=== PATIENT | female | born 1990 | race Caucasian/White ===

== ENCOUNTER 2017-10-31 10:07 | Day surgery (SDC) | payer BC, OTHER ==
[2017-10-30 11:06] VITALS: BMI 34.0
--- NOTE | 2017-10-30 11:56 | HISTORY & PHYSICAL EXAMINATION ---
DATE OF ADMISSION: 10/31/2017 PREOPERATIVE HISTORY AND PHYSICAL HISTORY OF PRESENT ILLNESS: The patient presents as a very pleasant 27-year-old white female with complaints of ongoing pain attributable to her right knee. She has patellofemoral chondrosis with patellofemoral syndrome. She has failed attempts at conservative management including physical therapy, anti-inflammatories, relative rest, activity modification as well as corticosteroid injections and physical therapy. PAST SURGICAL HISTORY: Significant for asthma, history of previous seizure disorder, and anxiety. ALLERGIES TO MEDICATIONS: None. FAMILY HISTORY: Otherwise unremarkable and noncontributory. SOCIAL HISTORY: The patient using vap cigarette smoking device. No alcohol. No other recreational drugs are noted. PAST MEDICAL HISTORY: Otherwise unremarkable. See history of present illness for pertinent positives. PHYSICAL EXAMINATION: GENERAL: Reveals a very pleasant 27-year-old female. HEENT: Atraumatic, normocephalic. HEART: Regular at 72 beats per minute. LUNGS: Clear. No rales, rhonchi, or wheezes noted. ABDOMEN: Soft, nontender, nondistended. Bowel sounds are present in all 4 quadrants. RECTAL: No rectal examination was performed. MUSCULOSKELETAL: Consistent with that of painful right knee with a chondral defect involving patella. PLAN: For arthroscopy, arthroscopic chondroplasty pending findings at time of surgery, postop pain management, DVT prophylaxis. ASHLYN
[~2017-10-31] VITALS: Ht 157.5 cm; Wt 84.5 kg
[~2017-10-31 10:07] MED LIST: AMT100 PO; ATENOLOL PO; CALC-51 PO; CEFAZOLIN 2000MG IV PUSH 10 ML IV SCH; LACTATED RINGER'S 1000ML 1,000 ML IV SCH; RISP0.258 PO; VITAMIN D PO; VNTHFA/IN INH
[2017-10-31 11:14] VITALS: BP 114/71; PULSE 82; TEMP 36.3; O2SAT 99; Ht 157.5 cm; Wt 84.5 kg
[2017-10-31] MEDS ORDERED: LIDOCAINE HCL 2% 2 ML VIAL (20MG/ML) ONE (11:18)
[2017-10-31] MEDS ORDERED: PROPOFOL IV EMULSION 10 MG/ML 20 ML VIAL IV ONE (11:18)
[2017-10-31] MEDS ORDERED: MIDAZOLAM HCL 1 MG/ML 2ML VIAL ONE ×2 (11:18→13:34)
[2017-10-31] MEDS ORDERED: DEXAMETHASONE SOD INJ 4 MG/ML VIAL ONE ×2 (11:18→13:34)
[2017-10-31] MEDS ORDERED: FENTANYL CITRATE INJ 50 MCG/1 ML 2 ML VIAL ONE ×3 (11:18→13:59)
[2017-10-31] MEDS ORDERED: ONDANSETRON INJ 2 MG/ML 2 ML VIAL ONE ×2 (11:18→13:34)
[2017-10-31] MEDS ORDERED: BUPIVACAINE/EPINEPHRINE 0.5% MPF 1:200,000 30 ML VIAL ONE (12:34)
[2017-10-31] MEDS ORDERED: BUPIVACAINE 0.25% 30 ML VIAL ONE (12:34)
[2017-10-31] MEDS ORDERED: SODIUM CHLORIDE 0.9% 1000ML 1,000 ML IV SCH (12:44)
[2017-10-31] MEDS ORDERED: ONDANSETRON INJ 2 MG/ML 2 ML VIAL IV PRN (12:45)
[2017-10-31] MEDS ORDERED: HYDROCODONE/ACETAMOPHEN 5/325MG TAB PO PRN ×2 (12:45)
[2017-10-31] MEDS ORDERED: HYDR-5688 PO (12:47)
--- NOTE | 2017-10-31 12:50 | Discharge Instructions ---
Discharge Instructions Date of Service Oct 31, 2017. Visit Reason for Visit: Right Knee Chondromalacia Patellae Discharge Discharge Diagnosis / Problem: right knee arthroscopy, chondroplasty Discharge Goals Goal(s): Decrease discomfort, Improve function, Increase independence Activity Recommendations Activity Limitations: as noted below Weightbearing Status: Right weightbearing (as tolerated) Anesthesia . Post Anesthesia Instructions: If you have had General Anesthesia or IV Sedation: * Do not drive today. * Resume driving when surgeon permits. * Do not make important decisions or sign legal documents today. * Call surgeon for: 1. Temperature elevations greater than 101 degrees F. 2. Uncontrollable pain. 3. Excessive bleeding. 4. Persistent nausea and vomiting. 5. Medication intolerance (nausea, vomiting or rash). * For nausea and vomiting use only clear liquids such as: tea, soda, bouillon until nausea subsides, then gradually increase diet as tolerated. * If you have any concerns or questions, call your surgeon's office. If physician is unavailable and it is an emergency, call 911 or go to the nearest emergency room. . Instructions / Follow-Up Instructions / Follow-Up ACTIVITY RECOMMENDATIONS: * You may walk on the leg with or without crutches as comfort permits. * Bending of the knee should start at once. * Do not shower for 48 hours following surgery. SPECIAL CARE INSTRUCTIONS: * You may cleanse the skin adjacent to the small wounds with soap and water at the time of the first dressing change. * The application of an ice bag to the front and sides of the knee will decrease swelling and discomfort for the first 48 hours. * The small incisions may be sore and develop bruising. This bruising does not require any special care. SPECIAL PRECAUTIONS: * If you experience unusual pain unrelieved by prescriptions, temperature elevation (100 degrees F. or above) or progressive swelling or bleeding, you should contact our office at for further evaluation. * You may have been prescribed pain medication. If you experience nausea and/or fine skin rash, discontinue this medication and contact our office at for an alternate medication. DRESSING: * Dressing should be comfortable and absorb any leakage of fluid and/or blood. * The dressing may become moist or bloodstained. * Dressing may be removed _24 hours_ after surgery and bandaids placed over the small surgical incisions. If can be removed sooner if it becomes very soiled or loose. * Bandaids may be used over next several days as needed and can be discontinued when there is not further drainage from the wounds. FOLLOW UP VISIT: If appointment is not already scheduled: Please call [facility] to make a follow-up appointment for your surgery at . Diet Recommendations Recommended Home Diet: resume previous diet Pending Studies Studies pending at discharge: no Medical Emergencies . Who to Call and When: Medical Emergencies: If at any time you feel your situation is an emergency, please call 911 immediately. . Non-Emergent Contact Non-Emergency issues call your: Primary Care Provider, Surgeon . . "Provider Documentation" section prepared by Graham Munguia. . [place] Drug Monitoring Program Search Results: patient reviewed within database, no issues identified
--- NOTE | 2017-10-31 12:52 | History & Physical Bridge Note ---
H&P Re-Evaluation Bridge Note: I have examined the patient, reviewed the History & Physical and in the interval since the performance of the History & Physical I have noted the following changes of clinical significance: No changes noted
[2017-10-31] MEDS ORDERED: PHENYLEPHRINE 100MCG/ML 5ML SYR ONE (13:11)
[2017-10-31] MEDS ORDERED: CEFAZOLIN SOD 1 GM VIAL ONE (13:11)
--- NOTE | 2017-10-31 13:31 | [facility] Operative Report ---
Operative Report Operative Date Oct 31, 2017. Pre-Operative Diagnosis Right Knee Pain with chondral defect Post-Operative Diagnosis Right Knee Pain with chondral defect Procedure(s) Performed Right Knee Arthroscopy, Chondroplasty, Resection of medial synovial plate Surgeon Dr. David Cannon Cut Off Saw Tender Metal Surgeon(s) none Estimated Blood Loss 3mL Findings Patient presents with a chondral lesion patella grade 3 stellate-type chondral fracture with large medial synovial plica patient in the patellofemoral joint flexion extension the knee joint Specimens none, Per Surgeon Complication(s) None Disposition Recovery Room / PACU Indications Painful patellofemoral syndrome medial synovial plica and chondral fracture stellate type grade 3 for chondral fracture of the patella Description of Procedure After proper prepping draping the right lower extremity medial lateral parapatellar portals were created or scopic examination revealed evidence of a 2 x 2 centimeter grade 3 chondral lesion involving the medial femoral condyle chondroplasty performed back to stable margin there is a stellate chondral lesion grade 3 primarily couple areas grade 4 involving both medial lateral facet of patella with diffuse grade 1 chondromalacia surrounding which was debrided back to stable margins Coloplast performed large cinematic medial synovial plica was also noted to be present plate was excised in its entirety medial was visualized probed and intact labrum was probed and intact anterior posterior cruciate ligaments revision improve noted intact optic intermedullary reamers removed and portals closed for allowing sterile compressive dressing placed patient was taken recovery in stable condition I attest to the content of the Intraoperative Record and any orders documented therein. Any exceptions are noted below.
[2017-10-31] MEDS ORDERED: METOCLOPRAMIDE HCL INJ 5 MG/ML 2 ML VIAL ONE ×2 (13:34→13:58)
[2017-10-31] MEDS ORDERED: ATROPINE SULFATE 0.1 MG/ML 5ML SYR IV PRN (14:00)
[2017-10-31] MEDS ORDERED: EpHEDrine SULFATE INJ 50 MG/ML AMP IV PRN (14:00)
[2017-10-31] MEDS ORDERED: METOCLOPRAMIDE HCL INJ 5 MG/ML 2 ML VIAL IV PRN (14:00)
[2017-10-31] MEDS: FENTANYL CITRATE INJ 50 MCG/1 ML 2 ML VIAL IV PRN ×2 (14:16→14:21)
--- NOTE | 2017-10-31 14:21 | Anesthesiology Progress Note ---
Anesthesia Post Op Note Date & Time Oct 31, 2017 at 14:21 Vital Signs Vital Signs Past 12 Hours Date Time Temp Pulse Resp B/P (MAP) Pulse Ox O2 Delivery O2 Flow Rate FiO2 10/31/17 14:15 70 16 112/73 94 Room Air 10/31/17 14:05 78 16 117/66 98 Room Air 10/31/17 13:55 81 16 118/73 98 Oxymask 10 10/31/17 13:45 78 16 117/73 98 Oxymask 10 10/31/17 13:37 36.2 90 24 116/65 98 Oxymask 10 10/31/17 11:14 36.3 82 18 114/71 (85) 99 Room Air Notes Mental Status: alert / awake / arousable, participated in evaluation Pt Amnestic to Procedure: Yes Nausea / Vomiting: adequately controlled Pain: adequately controlled Airway Patency, RR, SpO2: stable & adequate BP & HR: stable & adequate Hydration State: stable & adequate Anesthetic Complications: no major complications apparent
[2017-10-31 14:45] VITALS: BP 103/63; PULSE 75; TEMP 36.7; O2SAT 93
[2017-10-31 15:15] VITALS: BP 103/64; PULSE 88; TEMP 36.7; O2SAT 97
== END 2017-10-31 15:50 | disposition home or self-care (01) ==
LOC: C.ACU 10:07
PROVIDERS: ATTEND Orthopaedic Surgery
DX: S82.011A Displaced osteochondral fracture of right patella, initial encounter for closed fracture (principal); M22.41 Chondromalacia patellae, right knee; M67.51 Plica syndrome, right knee; J45.909 Unspecified asthma, uncomplicated; F41.9 Anxiety disorder, unspecified; Z86.69 Personal history of other diseases of the nervous system and sense organs; E66.9 Obesity, unspecified; X58.XXXA Exposure to other specified factors, initial encounter